=== PATIENT | female | born 1945 | race Caucasian/White ===

== ENCOUNTER → 2017-02-21 | Outpatient (CLI) | payer OTHER ==
[~2017-02-21] VITALS: Ht 172.7 cm; Wt 82.1 kg
[~2017-02-21] MED LIST: ALENDRONATE SOD70 MG PO; ASPIR 8181 MG PO; CALCIUM 600 +1 EAC1 PO; FISH OIL 1,001000 M2 PO; LISINOPRIL20 MG PO; LOPRESSOR50 PO; NITROGLYCERIN0.4 MG SUBLING; OXYBUTYNIN 5 MG5 M2 PO; TYLENOL PM EX-1 EACH PO; UNICOMPLEX M TA1 TA1 PO
--- NOTE | ~2017-02-21 | CATHLAB ---
[facility] [address] [facility] [place] [address] INVASIVE PROCEDURE REPORT Name: HARRISONPIYUSHIDRIS BARNESY Room #: REG CL [facility]#: [id number] Admission: 02/21/17 Attend Phys: Silverio Raza Discharge: Date of : 49 Date of Service: 02/21/17 1116 Report #: [id number] THIS REPORT FOR: //name// CC: Silverio Dempsey DATE OF SERVICE: 02/21/2017 DATE OF SERVICE: 02/21/2017. INDICATIONS: The patient is a 71-year-old female patient with hypertension, dyslipidemia, exertional symptoms suspicious for angina. ORAL AND MAXILLOFACIAL PATHOLOGIST: Silverio Jovel M.D. PROCEDURES: 1. Left heart catheterization. 2. Left and right coronary angiography. 3. Measurement of left ventricular end diastolic pressures. 4. Supervision of conscious sedation. BRIEF DESCRIPTION OF PROCEDURE: After informed consent was obtained, the patient was brought to the cardiac catheterization laboratory in stable condition. The patient's right groin was prepped and draped in the usual sterile manner after which lidocaine was then instilled. Utilizing a modified Seldinger technique, the right femoral artery was then accessed. Under fluoroscopic visualization using selective coronary catheters, the right and left coronaries were opacified and visualized. The left ventriculogram was likewise imaged per standard protocol with EDP being measured. Subsequent to this, the sheath was removed, hemostasis achieved. The patient tolerated the procedure well. There were no complications. FINDINGS: 1. FLUOROSCOPY: Under fluoroscopic visualization, there was some minimal plaquing along the epicardial coronary arteries. No significant plaquing on the valvular intramyocardial structures of the heart. 2. HEMODYNAMICS: A. Aortic pressure 170/89. B. Left ventricular end diastolic pressure is 25-30. 3. RHYTHM: The patient's rhythm was sinus throughout the entire procedure. 4. ANGIOGRAPHY: This is a right coronary dominant system. A. Left main is of normal origin and caliber, bifurcates left anterior descending and left circumflex. A short length without obstructive lesions noted. B. Left anterior descending is a moderate caliber vessel, which is somewhat [facility] [address] [place] [address] INVASIVE PROCEDURE REPORT Name: PIYUSH TERRY Room #: REG [facility].#: [id number] Admission: 02/21/17 Attend Phys: Silverio Raza Discharge: Date of : 49 Date of Service: 02/21/17 1116 Report #: [id number] tortuous in its proximal course, has an eccentric region of less than 50% narrowing, which is not flow limiting. Then, continues in the anterior interventricular sulcus giving rise to septal and diagonal branches. It distal third tapers rapidly to a small string like vessel without evidence of significant high-grade obstruction throughout its course prior to this. C. Left circumflex is a moderate caliber vessel, has an eccentric 50%-60% proximal and apparently near ostial lesion. It does not appear to be flow limiting. The circumflex then continues for a short time in the AV groove giving rise to a terminal marginal branches and is free of high-grade disease. D. Right coronary is of normal origin and caliber, proceeds in the AV groove. At the acute marginal where gives rise to marginal branches free of high-grade disease. The RCA proper then continues on to the crux of the heart giving rise to posterior descending artery and posterior wall branches, all of which are free of high-grade disease. IMPRESSION: 1. Coronary artery disease, moderate, 2-vessel. 2. Abnormal hemodynamics with elevated left ventricular end-diastolic pressure and systolic and peripheral systolic pressure. 3. Optimization of medical regimen both for an anginal and hypertensive regimen is recommended. <ELECTRONICALLY SIGNED> By: Silverio Jovel MD 02/22/17 1158 1116 1233 Silverio Jovel MD /nt
--- NOTE | ~2017-02-21 | H ---
[facility] [place] [address] HISTORY AND PHYSICAL Name: PIYUSH TERRY Room #: REG [facility]#: [id number] Admission: 02/21/17 Attend Phys: Silverio Jovel Discharge: Date of : 49 Report #: [id number] THIS REPORT FOR: //name// CC: Silverio Dempsey DATE OF SERVICE: 02/21/2017 HISTORY OF PRESENT ILLNESS: This is a very pleasant 71-year-old female patient who was seen in the office for assessment of atypical chest discomfort and fatigability. She has had a perfusion scan that demonstrated reversible defect, suspicious for ischemia with wall motion abnormalities. The patient now presents for cardiac catheterization. PHYSICAL EXAMINATION: GENERAL: Well-nourished and well-developed white female, resting comfortably in no acute distress. VITAL SIGNS: Noted and reviewed in the chart. HEENT: Normocephalic, atraumatic. Pupils are equal, round, reactive to light and accommodation. Extraocular muscles are intact. Sclerae and conjunctivae are anicteric. NECK: JVD is normal. Carotid upstrokes are bilaterally symmetrical. No bruits are heard. No thyromegaly. No lymphadenopathy. LUNGS: Clear to auscultation. No wheezes, rhonchi or crackles. No CVA tenderness. CARDIAC: Demonstrates a regular rhythm. Normal first and second heart sounds. No ventricular or atrial gallops, no rubs noted. No murmurs. No lifts or heaves, PMI normal. ABDOMEN: Soft, nontender, nondistended. Normal bowel sounds. EXTREMITIES: Without cyanosis, clubbing or edema. Distal pulses are intact. DTR symmetrical. NEUROLOGIC: Cranial nerves 2-12 are grossly normal and symmetrical. PSYCHIATRIC: Alert, oriented with normal affect. SKIN: Warm and dry. IMPRESSION AND PLAN: Abnormal noninvasive workup for ischemia due to her significant risk factors. The recommendation for cardiac catheterization was made. The risks, complications and alternatives of cath, angioplasty and conscious sedation were discussed with the patient. She voices understanding and wishes to proceed. <ELECTRONICALLY SIGNED> By: Silverio Jovel MD 02/22/17 1158 1012 1031 Silverio Jovel MD /nt
--- NOTE | ~2017-02-21 | CATHLAB ---
[address] [place] [address] INVASIVE PROCEDURE REPORT Name: PIYUSH TERRY Room #: REG [facility]#: [id number] Admission: 02/21/17 Attend Phys: Silverio Raza Discharge: Date of : 49 Date of Service: 02/22/172102 Report #: [id number] THIS REPORT FOR: //name// APPROVED REPORT Patient Details Patient Status: Out-Patient Room #: The patient is a 71 year-old female Event Personnel Silverio Jovel Web Development Consultant, Terra Sorensen [place], Ariel RN RN, Mark Ramires Monitor, Elena Russell Monitor Procedures Performed Left Heart Cath w/or w/o Coronaries [id number] [facility] Procedure Narrative The patient was brought electively to the Cardiac Catheterization Laboratory and was prepped and draped in a sterile manner. The Right Groin^ was infiltrated with 1% Lidocaine subcutaneous anesthesia. The right femoral accessed via ultrasound guidance. A PINNACLE 4FR Sheath #[id number] sheath was inserted into the RFA^. Coronary angiography was performed using coronary diagnostic catheters. The right coronary system was accessed and visualized with a JR4 catheter. The left coronary system was accessed and visualized with a JL4 catheter. The left ventricle was accessed and visualized with a PIGTAIL catheter. Left ventricular/Aortic Valve gradient assessed via catheter pullback. The patient tolerated the procedure well and there were no complications associated with the procedure. Intraoperative Conscious Sedation Sedation start time: 10.49 Case end Time: 11.02 Versed 2 mg Fluoro Time: 3.10 minutes Dose: DAP 332 cGycm2 Contrast Type and Amount: Omnipaque 27 ml Hemodynamics The aortic pressure is 170/89 mmHg with a mean of 121 mmHg. The left ventricular pressure is 143/7 mmHg with a mean of mmHg. The left ventricular end diastolic pressure is 25 mmHg. [facility] [place] [address] INVASIVE PROCEDURE REPORT Name: PIYUSH TERRY Room #: REG [facility]#: [id number] Admission: 02/21/17 Attend Phys: Silverio Raza Discharge: Date of : 49 Date of Service: 02/22/172102 Report #: [id number] Conclusion full cath report dictated <ELECTRONICALLY SIGNED> By: Silverio Jovel MD 02/22/172102 02 02 Silverio Jovel MD /INF
[2017-02-21 08:46] VITALS: BP 151/80
== END | disposition home or self-care (01) ==
LOC: CATH 07:49
DX: I25.10 Atherosclerotic heart disease of native coronary artery without angina pectoris (principal); I10 Essential (primary) hypertension; E78.5 Hyperlipidemia, unspecified; K58.9 Irritable bowel syndrome, unspecified; Z82.49 Family history of ischemic heart disease and other diseases of the circulatory system

== ENCOUNTER → 2020-06-21 | Outpatient (CLI) | payer OTHER | LOC: SJCVC 09:50 | PROVIDERS: ATTEND Internal Medicine | DX: R94.31 Abnormal electrocardiogram [ECG] [EKG] (principal); I25.10 Atherosclerotic heart disease of native coronary artery without angina pectoris; I10 Essential (primary) hypertension; E78.5 Hyperlipidemia, unspecified; Z79.82 Long term (current) use of aspirin; Z79.899 Other long term (current) drug therapy ==

== ENCOUNTER → 2020-12-22 | Outpatient (CLI) | payer OTHER | LOC: SJCVCIMAG 11:10 | PROVIDERS: ATTEND Internal Medicine | DX: I65.23 Occlusion and stenosis of bilateral carotid arteries (principal); Z79.82 Long term (current) use of aspirin; Z79.899 Other long term (current) drug therapy ==

== ENCOUNTER → 2020-12-28 | Outpatient (CLI) | payer OTHER ==
[~2020-12-28] VITALS: Ht 172.7 cm; Wt 77.1 kg
[~2020-12-28] MED LIST changes: +NORVASC5 MG PO; +SIMVASTATIN80 MG PO
[2020-12-28 08:41] VITALS: BP 131/68
--- NOTE | 2020-12-28 08:44 | EKG ---
[address] [address] [facility] [place] [address] ELECTROCARDIOGRAM REPORT Name: PIYUSH TERRY [id number] Admission: 12/28/20 Attend Phys: Silverio Jovel Discharge: Date of : 49 Report #: [id number] [facility] Test Date: 2020-12-28 Test Time: 08:21:23 Pat Name: PIYUSH TERRY Department: Room: Gender: F Distribution Technician: SILVINA : 1945 Requested By: Silverio Jovel Order Number: [id number] MD: Adi Samuels Measurements Intervals [place] Rate: 62 P: 63 WV: 159 QRS: -12 QRSD: 93 T: 32 QT: 411 QTc: 418 Interpretive Statements Sinus rhythm Inferior infarct, old Anterior infarct, old No previous ECG available for comparison Electronically Signed On 12-28-2020 8:44:34 CDT by Adi Samuels [email or web address] <ELECTRONICALLY SIGNED> By: Adi Samuels MD, MERGED WITH [facility] 12/28/20 0844 0 0 Adi Samuels MD, FACC /EPI
[2020-12-28 09:09] LABS: HEMATOCRIT 38.2 % (37.0-47.0); HEMOGLOBIN 12.5 gm/dL (12.0-15.0); MCH 32.3 pg (26.0-34.0); MCHC 32.8 g/dL (28.0-37.0); MCV 98.5 fL (80.0-100.0); RBC 3.87 mil/uL (4.20-5.00); WBC 4.5 thou/uL (4.0-11.0)
[2020-12-28 09:25] LABS: CALCIUM 8.8 mg/dL (8.5-10.1); CREATININE 1.1 mg/dL (0.6-1.0); POTASSIUM 4.3 mmol/L (3.5-5.1)
--- NOTE | 2021-01-01 11:24 | CATHLAB ---
[facility] [place] [address] [place] [address] INVASIVE PROCEDURE REPORT Name: PIYUSH TERRY Room #: REG [facility]#: [id number] Admission: 12/28/20 Attend Phys: Silverio Jovel Discharge: Date of : 49 Report #: [id number] THIS REPORT FOR: cc: Melina Rodriguez Laura FNP Lammoglia, Francisco J. MD ~ APPROVED REPORT Study performed: 12/28/2020 09:51:49 Patient Details Patient Status: Out-Patient Room #: The patient is a 75 year-old female Event Personnel Silverio Jovel [place], [place] RTR Monitor, Martín Romero RN RN, Corbin Pickett RTR Scrub Procedures Performed Art Access - R femoral artery* Left Heart Cath w/or w/o Coronaries [id number] [facility] [address] Initial Mod Sed Same Phys/QHP Gr 890742 55640 Mod Sed Same Phys/QHP Ea [id number] Hemostasis with Manual pressure, supervision conscious sedation Indication Positive stress test, Chest pain Procedure Narrative The Right Groin^ was infiltrated with 1% Lidocaine subcutaneous anesthesia. A PINNACLE 4FR Sheath #[id number] sheath was inserted into the RFA^. Coronary angiography was performed using coronary diagnostic catheters. The right coronary system was accessed and visualized with a JR4 catheter. The left coronary system was accessed and visualized with a JL4 catheter. The left ventricle was accessed and visualized with a PIGTAIL catheter. Hemostasis was obtained with manual pressure following sheath removal without any complications. The patient tolerated the procedure well and there were no complications associated with the procedure. There was no hematoma. Intraoperative Conscious Sedation Sedation start time: 10:14 Case end Time: 10:40 Versed 2 mg [facility] [address] [place] [address] INVASIVE PROCEDURE REPORT Name: PIYUHS TERRY Room #: REG [facility] [id number] Admission: 12/28/20 Attend Phys: Silverio Raza Discharge: Date of : 49 Report #: [id number] Fluoro Time: 3.30 minutes Dose: DAP 2941.00 cGycm2 765 mGy Contrast Type and Amount: Omnipaque 50 ml Coronary Angiography The patient's coronary anatomy is right dominant. Diagnostic Cath Left Main Moderate to large caliber vessel normal origin bifurcates left anterior circumflex free of high-grade disease LAD Moderate to large caliber type III vessel coursing anterior interventricular sulcus giving rise to septal diagonal branches. The vessel is quite tortuous in its course as it tapers rapidly in the distal third towards the apex. In its proximal mid portion it gives rise to moderate caliber diagonal which courses on the anterolateral wall free of high-grade disease but quite tortuous Diagonal 1 Moderate caliber vessel coursing along the anterolateral wall without significant high-grade lesion but quite tortuous in its course Circumflex Moderate to large caliber nondominant vessel which in its proximal course gives rise to 2 small diminutive vessel. Then gives rise to marginal branch which is moderate in size continues on giving rise to a second posterolateral marginal branch and terminates a small caliber vessel in the posterior aspect of the ventricle. In the proximal portion there is an eccentric ostial 20 to 30% lesion and a subsequent eccentric 30% nonflow limiting plaque. OM1 Moderate caliber vessel tortuous course as it proceeds on the lateral aspect of the heart towards the apex no high-grade lesions noted but numerous hairpin curves of the vessel are noted OM2 Smaller caliber vessel without significant high-grade lesion but tortuous course as in marginal 1 Right Coronary Large-caliber vessel normal origin has a mild 25% plaque proximally. Then continues to the acute margin where a small RV marginal branch arises free of high-grade disease. The RCA proper then continues to the crux of the heart were gives rise to small caliber posterior wall branch that appears to function as a PDA and 2 other posterior wall branches which are supplying the posterior aspect of the ventricle. R PDA Small diminutive size vessel with out high-grade lesion Left Ventriculography Left Ventriculography was not performed. Hemodynamics [facility] [address] [place] [address] INVASIVE PROCEDURE REPORT Name: HARRISONPIYUSHIDRIS FULTON Room #: REG [facility]#: [id number] Admission: 12/28/20 Attend Phys: Silverio Raza Discharge: Date of : 49 Report #: [id number] The aortic pressure is 139/73 mmHg with a mean of 97 mmHg. The left ventricular pressure is 140/-2 mmHg with a mean of mmHg. The left ventricular end diastolic pressure is 20 mmHg. Conclusion 1. Mild coronary disease nonobstructive plaquing noted in the left circumflex and right coronary artery 2. Abnormal hemodynamics with mildly elevated low ventricular diastolic pressures Recommendations Cardiac Risk Reduction Program Medical Therapy <ELECTRONICALLY SIGNED> By: Silverio Jovel MD 01/01/21 1124 1124 1124 Silverio Jovel MD /INF
== END | disposition home or self-care (01) ==
LOC: CATH 07:52
PROVIDERS: ATTEND Internal Medicine
DX: R94.39 Abnormal result of other cardiovascular function study (principal); R07.9 Chest pain, unspecified; I25.10 Atherosclerotic heart disease of native coronary artery without angina pectoris; I10 Essential (primary) hypertension; E78.5 Hyperlipidemia, unspecified; Z98.890 Other specified postprocedural states; Z79.899 Other long term (current) drug therapy